=== PATIENT | female | born 1995 | race Caucasian/White ===

== ENCOUNTER → 2021-02-09 10:17 | Outpatient (CLI) | payer MEDICAID, SELFPAY ==
[2016-09-15 12:50] VITALS: BMI 26.9
[2021-02-09 13:38] LABS: Absolute Lymphocyte Count 2.46 X10^3/uL (0.83-4.51); Absolute Neutrophil Count 7.1 X10^3/uL (2.0-7.7); Basophil# 0.04 X10^3/uL; Basophil% 0.4 % (0-1); Eosinophil# 0.13 X10^3/uL; Eosinophils% 1.3 % (0-5); Hematocrit 45.5 % (37-47); Hemoglobin 14.6 g/dL (12.0-15.0); Lymphocyte # 2.46 X10^3/ul (0.83-4.51); Mean Corp Hgb Conc 32.1 g/dL (32-36); Mean Corpuscular Hgb 28.7 pg (27.0-32.0); Mean Corpuscular Volume 89.4 fL (81-99); Mean Platelet Vol. 9.5 fl (6.2-12.0); Monocyte# 0.56 X10^3/uL; Monocyte% 5.5 % (0-10); NRBC Flagged by Analyzer 0 % (0-5); Neutrophil # 7.05 X10^3/uL (2.7-7.7); Neutrophil % 68.5 % (47-70); Platelet Count 371 K/mm3 (150-450); RBC Distribution Width CV 12.9 % (11.6-14.6); RBC Distribution Width SD 42.7 fl (35.1-43.9); Red Blood Count 5.09 M/mm3 (4.2-5.4); White Blood Count 10.3 K/mm3 (4.4-11.0)
[2021-02-09 14:26] LABS: HIV - WCH Non-Reactive (Nonreactive); Hepatitis B Surface Antigen Non-Reactive (Nonreactive); Hepatitis C Antibody Non-Reactive (Nonreactive); Rubella IgG Reactive (Nonreactive); Syphilis Antibodies Non-reactive
[2021-02-11 04:12] LABS: Chlamydia By Nucleic Acid AMP Negative (Negative)
[2021-02-11 15:29] LABS: Gonococcus By Nucleic Acid AMP Negative (Negative)
[2021-02-12 12:51] LABS: HPV Reflexed? NOT INDICATED
== END ==
PROVIDERS: PCP Family Medicine; Visit Provider Obstetrics & Gynecology
DX: Z34.81 Encounter for supervision of other normal pregnancy, first trimester (principal)
CPT/HCPCS: 36415; 85025; 86703; 86762; 86780; 86803; 87086; 87088; 87186; 87340; 87491; 87591; 88175; G0145

== ENCOUNTER → 2021-02-11 15:19 | Outpatient (CLI) | payer MEDICAID, SELFPAY ==
[2016-09-15 12:50] VITALS: BMI 26.9
[2021-02-11 15:44] LABS: Hematocrit 42.8 % (37-47); Mean Corp Hgb Conc 32.7 g/dL (32-36); Mean Corpuscular Hgb 28.6 pg (27.0-32.0); Mean Corpuscular Volume 87.5 fL (81-99); Mean Platelet Vol. 9.2 fl (6.2-12.0); Platelet Count 361 K/mm3 (150-450); RBC Distribution Width CV 12.7 % (11.6-14.6); RBC Distribution Width SD 40.7 fl (35.1-43.9); Red Blood Count 4.89 M/mm3 (4.2-5.4); White Blood Count 9.7 K/mm3 (4.4-11.0)
[2021-02-11 15:56] LABS: Prothrombin Time (Protime)PT. 12.7 SECONDS (11.7-14.9)
[2021-02-11 15:57] LABS: Partial Thromboplast Time 35.9 Seconds (24.1-36.2)
[2021-02-11 16:18] LABS: ALB/GLOB Ratio 1.2 RATIO (0.9-2.4); AST(SGOT) 8 U/L (15-37); Alanine Aminotransfer ALT/SGPT 16 U/L (13-56); Alkaline Phosphatase 49 U/L (45-117); Anion Gap 0 (5-15); BUN 10 mg/dL (7-18); BUN/Creat Ratio 14.5 RATIO (10-20); Calcium,Total 9.4 mg/dL (8.5-10.1); Chloride 107 mmol/L (98-107); Creatinine, Serum 0.69 mg/dL (0.55-1.02); EST Glomerular Filtration Rate 109 mL/min (>60); Est Glom Filt Rate - Afr Amer 132 mL/min (>60); Globulin 3.2 g/dL (2.2-4.2); Glucose 86 mg/dL (74-106); Potassium 3.8 mmol/L (3.5-5.1); Protein, Total 7.2 g/dL (6.4-8.2); Sodium Level 138 mmol/L (136-145)
[2021-02-11 16:35] LABS: hCG Titer Quant., Serum 2918 mIU/mL (1-3)
== END ==
PROVIDERS: PCP Family Medicine; Visit Provider Obstetrics & Gynecology
DX: O36.80X0 Pregnancy with inconclusive fetal viability, not applicable or unspecified (principal); Z3A.00 Weeks of gestation of pregnancy not specified
CPT/HCPCS: 36415; 80053; 84702; 85027; 85610; 85730

== ENCOUNTER 2021-02-11 20:16 | Day surgery (SDC) | payer MEDICAID, SELFPAY ==
--- NOTE | 2021-02-11 | OV_PTH ---
PATIENT: ИРИНА HERNANDEZ [place] [facility] [place][id number] AGE/SX: 25/F ROOM: RE02/11/[address]: Dr. Nacho Islas MD : 1995 BED: DIS: 02/11/2021 SPEC #: [id number] RECD: 02/12/21 07:29 STATUS: CLARE HARISH #: [id number] H[place]: 02/11/21 00:[address]: Nacho Islas DEPT: SURGICAL PATHOLOGY RECD BY: Carlos Armendariz ENTERED: 02/12/21 08:19 SP TYPE: OVARY OTHR DR: Dr. 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 See comment. Right fallopian tube ? chronic inflammation involving mucosa. See comment. SJ:rg 02/15/2021 COMMENT Mucin stain with matched control is used in the evaluation of the specimen and tumor cells are positive for mucin. Chorionic villi, tissue or placental tissue is not identified in the sections examined. This case is discussed with Dr. Janae Mera on 02/15/2021. Case has been reviewed in consultation with Dr. Tarango who concurs with the above diagnosis. IDC:AM MICROSCOPIC DESCRIPTION Slides are reviewed. GROSS DESCRIPTION Received in fixative is one container labeled with the patient's name and designated right fallopian tube and ovary. The specimen consists of a fallopian tube and previously, partially opened cystic ovary. The fallopian tube measures 6 cm in length and 0.5 cm in diameter. The fimbrial end is identified. Sections reveal unremarkable cut surfaces. No tubo-ovarian adhesions are noted. A previously, partially opened cystic ovary measures 10.5 x 6 x 3 cm and weighs 46 gm. No papillations are identified. The cystic ovary appears to consist of multilobulated cysts. Focal congested areas are noted. No papillations are identified. tissue, placental tissue or blood clots are not identified. Chemotherapist sections are submitted in seven cassettes as follows: 1 ? fallopian tube, 2-7 ? ovary. / SJ:rg 02/12/21 TC:1 CPT: 38989, 84280
--- NOTE | 2021-02-11 20:28 | PCM.HP.BLA ---
History and Physical Date of Admission: 02/11/21 Chief complaint: Vaginal bleeding, abdominal pain History of present illness: 25-year-old G3, P1 at 8 weeks and 3 days by LMP of 12/14/2020 with HERNESTO: 09/20/2021 with vaginal bleeding and pelvic pain. Arrived in office found to have 12 cm right ovarian cyst suspected ectopic . Denies headache, visual changes, chest pain, shortness of breath, nausea vomiting, right upper quadrant pain. Obstetric history: G1: Term G2: SAB G3: Current Past medical history: Hypothyroid Medications: vitamin, Synthroid Past surgical history: Appendectomy, D&C, thyroidectomy, ganglion cyst removal, tonsil and adenoids Allergies: No known drug allergies Social history: Half pack per day smoker, denies alcohol or drug use Family history: Denies history DVT or PE Review of systems: Besides above pertinent positives a full review of systems was performed and found to be negative Physical exam: General: Normal-appearing no acute distress HEENT: Normocephalic atraumatic no cervical of adenopathy Cardiac/respiratory: No use of accessory muscles, nonlabored breathing Abdomen: Soft, mildly tender in right lower quadrant, nondistended Pelvic exam: Normal external genitalia. Cervix within normal limits, no cervical motion tenderness. Right ovarian cyst palpable approximately 10 cm painful Extremities: No peripheral edema normal peripheral pulses Psych: Normal affect normal demeanor nonpressured speech In office transvaginal ultrasound: Gestational sac 7 mm, 12 cm complex right ovarian cyst Assessment plan: 25-year-old G3, P1 with gestational sac no yolk sac and 12 cm complex right ovarian cyst along with vaginal bleeding and pelvic pain suspect ectopic . Office hCG greater than 2900. Based on these findings educated patient on suspicious for ectopic in need of diagnostic laparoscopy, possible removal of right ectopic, possible right ovarian cystectomy, possible right salpingo-oophorectomy. Patient stated understanding and wished to proceed. Understood the risks include but are not limited to visceral or vascular injury, prolonged hospitalization, blood loss need for transfusion, reoperation, future ectopic pregnancies. Patient state understanding wish to proceed. All questions were answered consent was signed.
--- NOTE | 2021-02-11 20:43 | ED.RN ---
#20 iv inserted into rac. pt lore well. labs drawn per ed protocol. covid test completed per or's request.
--- NOTE | 2021-02-11 22:21 | PCM.DC ---
Discharge Instructions Diet Discharge Diet: No restrictions Activity Discharge Activity: Return to Normal Activity, May Drive and May Shower May resume sexual activity in: 4-6 weeks Weight Bearing Status: Weight bearing as tolerated Dressing / Incision Call your doctor if your incision/area has: Continuous Slow Oozing, Increased Pain/ Swelling and Foul Smelling Discharge Call your doctor if you observe: Fever of 101 or Higher, Shortness of breath and Chest pain Follow Up Care Please Follow Up With: Nacho Islas MD When: 2 weeks post operative Test Results: Test results from this visit will be discussed in further detail at your follow-up appointment, if applicable. Discharge Plan Admission Attending Provider: Nacho Islas Primary Care Provider: Hernán Dawn Discharge Orders/Prescriptions Prescriptions: No Action levothyroxine 150 MCG tablet 150 mcg PO DAILY RF: 0 acetaminophen-codeine 1 TABLET tablet 1 - 2 tab PO Q4H PRN PRN (Reason: Pain) Qty: 20 RF: 0 methylergonovine 0.2 MG tablet 0.2 mg PO Q6H Qty: 5 RF: 0 doxycycline hyclate 100 MG capsule 100 mg PO BID Qty: 14 RF: 0 phenazopyridine [Pyridium] 200 MG tablet 200 mg PO TID Qty: 10 RF: 0 naproxen [Naprosyn] 500 MG tablet 500 mg PO BID Qty: 14 RF: 0 nitrofurantoin monohyd/m-cryst [Macrobid] 100 MG capsule 100 mg PO BID Qty: 10 RF: 0
[2021-02-11 22:25] VITALS: BP 126/76; PULSE 90; RESP 18; TEMP 37.1; O2SAT 99
--- NOTE | 2021-02-11 22:28 | OP.PCM_ITS ---
Report of Operation Date of Procedure: 02/11/21 Pre-Operative Diagnosis: Suspected ectopic Post-Operative Diagnosis: Right ovarian cyst Surgery/Procedure Performed:: Diagnostic laparoscopy right salpingo-oophorectomy Description of Surgical Findings:: Surgeon: Nacho Islas Anesthesia: General EBL: Minimal Urine output: 200 cc IV fluids: 1000 cc Complications: None Specimen: Right ovarian cyst and right ovary, right fallopian tube Findings: Fluid-filled septated cyst on right ovary noted, filled entire pelvis approximately 12 to 14 cm. Cyst filled with over 400 cc of fluid serosanguineous. Signs of tension at the IP ligament but no signs of torsion or necrosis at the site of the cyst and ovary. Overall entire ovary was the cyst, no signs of healthy right ovarian tissue. Fallopian tube involved stretched by ovarian cyst. Left lipping tube and ovary within normal limits. What appears to be corpus luteal cyst on left ovary 2 cm in size. Uterus within normal limits. Consent: Patient arrived to office with vaginal bleeding and abdominal pain found to have 12 cm complex cyst on right ovary with no IUP and hCG greater than 2900 suspicion for right ectopic. Patient elected for diagnostic laparoscopy, possible right removal of ectopic, possible right ovarian cystectomy, possible right salpingo-oophorectomy. Patient understands risk of procedure include but are not limited to visceral or vascular injury, prolonged hospitalization, blood loss need for transfusion, future ectopic pregnancies. Patient state understanding wish to proceed. All questions were answered consent was signed. Procedure: Patient was brought back to the OR where general anesthesia found to be adequate. Patient was apparent draped in dorsolithotomy position with yellowfin stirrups. Varies needle was inserted the umbilicus water sleep test was passed abdomen was insufflated. Initially 5 mm supra umbilical trocar was inserted under direct visualization. Laparoscope was inserted above findings were noted. Bilateral lower quadrant 5 mm trochars were inserted under direct visualization. Ovarian cyst was aspirated and drained serosanguineous fluid greater than 400 cc. Using an atraumatic grasper and a LigaSure device the IP ligament was cut and cauterized along with the mesosalpinx was cut and cauterized to the cornua. Umbilical trocar was removed and 12 mm trocar was inserted, Endo Catch bag was inserted. Ovarian cyst and right fallopian tube removed, sent to pathology. Good hemostasis was noted. And a fascial closure device was used to close the fascia of the 12 mm trocar. Abdomen was desufflated good hemostasis was noted. Trochars were closed in a subcutaneous fashion. All counts correct x2. Patient tolerated procedure well was brought to recovery stable condition. donor center technician: Jordyn Reed
[2021-02-11 22:30] VITALS: BP 122/81; PULSE 84; RESP 18; O2SAT 100
[2021-02-11 22:45] VITALS: BP 118/79; PULSE 90; RESP 18; O2SAT 100
[2021-02-11 22:56] VITALS: BP 115/69; BP 126/76; PULSE 83; RESP 18; TEMP 36.4; O2SAT 100
[2021-02-11 23:00] VITALS: BP 126/76
[2021-02-11] MEDS: Acetaminophen 500 MG Tablet 1000 MG PO (23:05)
== END 2021-02-11 23:19 ==
LOC: SDC 20:21
PROVIDERS: PCP Family Medicine; Referring Provider Obstetrics & Gynecology; Visit Provider Obstetrics & Gynecology
PROC: 10T24ZZ Resection of Products of Conception, Ectopic, Percutaneous Endoscopic Approach (ICD-10-PCS; CPT 59150; principal; 2021-02-11 21:00)
DX: D27.0 Benign neoplasm of right ovary (principal); N70.11 Chronic salpingitis; E03.9 Hypothyroidism, unspecified; F17.210 Nicotine dependence, cigarettes, uncomplicated; Z79.899 Other long term (current) drug therapy; O36.80X0 Pregnancy with inconclusive fetal viability, not applicable or unspecified; Z3A.00 Weeks of gestation of pregnancy not specified
CPT/HCPCS: 00840; 58661; 36415; 80053; 84702; 85027; 85610; 85730; 88305; 88307; 88313; J2405